=== PATIENT | female | born 1990 | race Hispanic/Latino ===

== ENCOUNTER 2021-09-02 23:09 | Emergency (ER) | payer SELFPAY ==
[2021-09-02] MEDS ORDERED: Ketorolac Tromethamine 30 MG/ML VIAL ONE (23:31)
[2021-09-02] MEDS ORDERED: Diazepam 5 MG TAB ONE (23:38)
[2021-09-03] MEDS ORDERED: Docusate 100 MG CAP FS SCH (00:15)
[2021-09-03] MEDS ORDERED: Mineral Oil ENEMA FS SCH (00:30)
== END 2021-09-03 01:58 | disposition home or self-care (01) ==
LOC: CSHERS 23:09
DX: H66.91 Otitis media, unspecified, right ear (principal); H61.21 Impacted cerumen, right ear; F17.210 Nicotine dependence, cigarettes, uncomplicated
CPT/HCPCS: 96372; 99282; J1885